=== PATIENT | male | born 1995 | race Caucasian/White ===

== ENCOUNTER 2017-10-06 13:40 | Emergency (ER) | payer SELFPAY ==
[~2017-10-06] VITALS: Ht 182.9 cm; Wt 160.6 kg
--- OUTSIDE RECORDS SUMMARY | 2017-10-06 13:46 | External Medical Summary Rpt | CCD ---
Author Author , LAZARO WILLIS Address Unknown Phone [email or web address] Purpose Continuity of Care Document - 01-24-2017 through 2016 Problems Code Diagnosis DOS Provider Status J45.909 UNSPECIFIED 01-24-2017 ASTHMA, UNCOMPLICAT ED R11.2 NAUSEA WITH 01-24-2017 VOMITING, UNSPECIFIED R19.7 DIARRHEA, 01-24-2017 UNSPECIFIED Z88.8 ALLERGY 01-24-2017 STATUS TO OTHER DRUGS, MEDICAMENTS AND BIOLOGICAL SUBSTANCES STATUS
--- OUTSIDE RECORDS SUMMARY | 2017-10-06 13:46 | External Medical Summary Rpt | CCD ---
Author Author , LAZARO WILLIS Address Unknown Phone [email or web address] Purpose Continuity of Care Document - 01-24-2017 through 2016 Problems Code Diagnosis DOS Provider Status J45.909 UNSPECIFIED 01-24-2017 ASTHMA, UNCOMPLICAT ED R11.2 NAUSEA WITH 01-24-2017 VOMITING, UNSPECIFIED R19.7 DIARRHEA, 01-24-2017 UNSPECIFIED Z88.8 ALLERGY 01-24-2017 STATUS TO OTHER DRUGS, MEDICAMENTS AND BIOLOGICAL SUBSTANCES STATUS
--- OUTSIDE RECORDS SUMMARY | 2017-10-06 13:47 | External Medical Summary Rpt | CCD ---
Demographics Preferred Language Lao Marital Status Unknown Islam Affiliation Unknown Race Unknown Ethnic Group Unknown Author Author , LAZARO WILLIS Address Unknown Phone Immunization No patient found.
--- OUTSIDE RECORDS SUMMARY | 2017-10-06 13:47 | External Medical Summary Rpt | CCD ---
Author Author [facility] Address Unknown Phone Unavailable Purpose Continuity of Care Document - through 2016
--- OUTSIDE RECORDS SUMMARY | 2017-10-06 13:47 | External Medical Summary Rpt | CCD ---
Demographics Preferred Language Occitan Marital Status Unknown Hindu Affiliation Unknown Race Unknown Ethnic Group Unknown Author Author , LAZARO WILLIS Address Unknown Phone Immunization No patient found.
--- NOTE | 2017-10-06 14:12 | Urgent Treatment Center Report ---
History of Present Issue Date/Time Seen by Provider 10/06/17 1411 Visit Reason Pt arrived:Walked Presenting Problem:PT C/O FEVER, ACHES, CHILLS, AND COUGH. Location if Accident: Onset of symptoms date/time:/ or onset unknown for:MEDICAL HX UNKNOWN Have you (or family members/close friends) recently traveled outside the [place]? N If Yes, where/when: Have you had exposure to infectious disease within the past month? TB? Other? Specify: Source patient, RN notes reviewed Exam Limitations no limitations Comment Patient has had fever X 3-4 days. Has had body aches, chills. Mild runny nose and mild cough. Mostly non productive. Denies dysuria, but urine has been darker than normal. Denies ear pain. Mild sore throat but was swabbed for strep at different facility 2 days ago and was negative. Has had vomiting, but no diarrhea. No rash. ALLERGIES Coded Allergies: No Known Allergies (10/06/17) History Medical History Immunization HX DT/Tetanus Unknown Surgical Hx Previous Surgery?N Social History Smoking Hx Smoker: Never Smoker Tobacco: No Alcohol Alcohol: No Review of Systems All Other Systems Reviewed and Negative Constitutional chills, fever, malaise ENT nose discharge, throat pain. denies: ear pain. Respiratory cough Gastrointestinal denies diarrhea, vomiting Musculoskeletal see HPI Skin denies rash Physical Exam Vital Signs Vital Signs Date Time Temp Pulse Resp B/P Pulse O2 O2 Flow FiO2 Ox Delivery Rate 10/06 1407 101.1 105 20 131/83 96 General Appearance normal appearance, no apparent distress Eye Exam - bilateral eye normal exam, bilateral eye PERRL, bilateral eye EOMI Ear, Nose, Throat hearing grossly normal, abnormal TM (R), abnormal TM (L), sinus pain/drainage (right maxillary sinus TTP) Respiratory Status No: respiratory distress, trachea midline, chest symmetrical. Lung Sounds bilateral: normal breath sounds, lungs clear. Cardiovascular normal exam, regular rate/rhythm, no peripheral edema, no gallop, no JVD, no murmur, no rub Gastrointestinal normal bowel sounds, normal exam, non tender Extremities non-tender, normal range of motion, normal inspection, normal capillary refill Neurologic alert, normal exam, oriented x 3 Mental status normal mood/affect Skin no rash cons.w/shingles Medical Decision Making LABS/Meds/Orders Pt receiving controlled substance in ED? No Results/Orders Laboratory Tests 10/06/17 1419: Urine Color KIMBER, Urine Appearance CLOUDY, Urine pH 6.0, Ur Specific [place] 1.020, Urine Protein 1+ H, Urine Ketones TRACE H, Urine Blood TRACE H, Urine Nitrate NEGATIVE, Urine Bilirubin 1+ H, Urine Urobilinogen >=8.0 H, Ur Leukocyte Esterase NEGATIVE, Urine Glucose 1+ H 10/06/17 1412: Influenza Type A Ag NOT DETECTED, Influenza Type B Ag NOT DETECTED Orders Procedure Date/time Status UTC URINE DIPSTICK 10/06 1419 Complete UTC FLU A,B 10/06 1412 Complete Departure Departure Time of Disposition 1431 Disposition DC Home or Self Care(routine) Clinical Impression Primary Impression: Sinusitis Qualifiers: Sinusitis location: maxillary Chronicity: acute Recurrence: non- recurrent Qualified Code: J01.00 - Acute maxillary sinusitis, unspecified Secondary Impressions: Glycosuria Vomiting Qualifiers: Vomiting type: unspecified Vomiting Intractability: non-intractable Nausea presence: without nausea Qualified Code: R11.11 - Vomiting without nausea Condition STABLE Referrals ELIJAH ORTIZ Patient Instructions DI for Sinusitis Additional Instructions Rest, fluids. Patient had glucose on urine - needs follow up for this in future but states has no money and no insurance. Refused meds for vomiting for same reason. Thinks he can get $4 for prescription for antibiotics. Discharge Counseling Counseled pt/family regarding diagnosis, test results, medications/RX, home care, follow up needs Prescriptions Current Visit Scripts Amoxicillin (Amoxicillin 500MG) 500 MG PO TID #30 CAP at 1434
[2017-10-06 14:29] LABS: URINE BILIRUBIN - DIPSTICK 1+ (NEG)
[2017-10-06 14:30] LABS: URINE BLOOD TRACE (NEG)
[2017-10-06] MEDS ORDERED: AMOXICOT500 MG PO (14:35)
[2017-10-06 14:45] VITALS: BP 131/83
== END 2017-10-06 15:00 | disposition home or self-care (01) ==
LOC: UTC 13:40
PROVIDERS: Emergency Medicine
DX: J01.00 Acute maxillary sinusitis, unspecified (principal); R81 Glycosuria; R11.11 Vomiting without nausea